=== PATIENT | female | born 1995 | race African-American/Black ===

== ENCOUNTER 2017-04-05 00:01 | Emergency (ER) | payer OTHER ==
[~2017-04-05] VITALS: Ht 170.2 cm; Wt 88.5 kg
[2017-04-05 00:02] VITALS: BP 140/83; PULSE 68; RESP 16; TEMP 98; O2SAT 100
--- NOTE | 2017-04-05 00:49 | PD ---
HPI Chief Complaint: Injury Time Seen by Provider: 00:40 Travel History International Travel<30 days: No Contact w/Intl Traveler<30days: No Traveled to known affect area: No History of Present Illness HPI 21-year-old female here with right ankle pain. She twisted her right ankle in an inversion mechanism while playing basketball tonight. She has been Having pain lateral right ankle, constant, worse with movement or ambulation. No other complaints. [facility] Past Medical History Medical History: Denies Significant Hx Diminished Hearing: No Immunizations Current: No Tetanus Vaccination: < 5 Years Influenza Vaccination: Yes ?: Not Past Surgical History Surgical History: No Previous Surgery Social History Alcohol Use: No Tobacco Use: No Substance Use: No Allergies-Medications (Allergen,Severity, Reaction): Coded Allergies: No Known Allergies (Unverified , 04/05/17) Reported Meds & Prescriptions Reported Meds & Active Scripts Active No Active Prescriptions or Reported Medications Review of Systems Except as stated in HPI: all other systems reviewed are Neg Physical Exam Narrative GENERAL: Well-nourished female in no acute distress SKIN: Warm and dry. Soft tissue swelling around the lateral malleolus of the right ankle. CARDIOVASCULAR: Regular rate and rhythm. No murmur appreciated. RESPIRATORY: No accessory muscle use. Clear to auscultation. Breath sounds equal bilaterally. MUSCULOSKELETAL: Soft tissue swelling as noted above. Tender to palpation lateral right ankle, foot. Pain with dorsi and plantar flexion. Achilles tendon intact. 2+ dorsalis pedis and posterior tibial pulse. NEUROLOGICAL: Awake and alert. No obvious cranial nerve deficits. Motor grossly within normal limits. Normal speech. PSYCHIATRIC: Appropriate mood and affect; insight and judgment normal. Data Data Last Documented VS Vital Signs Date Time Temp Pulse Resp B/P (MAP) Pulse Ox O2 Delivery O2 Flow Rate FiO2 04/05/17 00:02 98.0 68 16 140/83 (102) 100 Room Air Orders Orders Ankle, Complete ([id number]) (04/05/17 ) Foot, Complete (Crr5ihs) (04/05/17 ) Ice/Cold Pack (04/05/17 00:46) Acetaminophen (Tylenol) (04/05/17 01:00) Ct Ankle W/O Contrast (04/05/17 ) Crutches (04/05/17 02:18) Splint Or Brace Apply/Monitor (04/05/17 02:18) MDM Medical Decision Making Medical Screen Exam Complete: Yes Emergency Medical Condition: Yes Medical Record Reviewed: Yes Differential Diagnosis Lateral ankle sprain, fibular fracture, avulsion fracture, Lisfranc injury Narrative Course 21-year-old female with lateral right ankle pain after twisting her ankle in an inversion mechanism this evening. Ice pack provided. X-ray imaging ordered. Tylenol ordered. X-ray imaging revealed a questionable hairline linear fracture through the tibia and therefore CT of the ankle was ordered and this is negative for fracture. The patient appears to have a lateral ankle sprain. She is being discharged with ankle stirrup splint and crutches. Diagnosis Primary Impression: Right ankle sprain Qualified Codes: S93.401A - Sprain of unspecified ligament of right ankle, initial encounter Additional Instructions: Ice packs or times a day 20 minutes at a time. Elevate. Crutches as needed. Tylenol or Motrin as needed. Gradually return to normal activities. Follow-up with primary care physician in 2-3 weeks. Med/Other Pt SpecificInfo: Orthopedic Instructions Scripts No Active Prescriptions or Reported Meds Disposition: DISCHARGE HOME Condition: Stable Alphonso Parson Apr 05, 2017 00:49
[2017-04-05] MEDS ORDERED: ACETAMINOPHEN 325 MG TAB PO ONE (01:00)
--- NOTE | 2017-04-05 01:13 | RADRPT ---
EXAM DATE/TIME: 04/05/2017 01:04 [facility] COMPARISON: No previous studies available for comparison. INDICATIONS : Sprained ankle. MEDICAL HISTORY : None. SURGICAL HISTORY : None. ENCOUNTER: Initial ACUITY: 1 day PAIN SCORE: 3/10 LOCATION: Right Top of foot. FINDINGS: No acute fracture identified within the right foot. There is soft tissue swelling over the lateral ma lleolus. There is a questionable nondisplaced hairline fracture extending longitudinally through the tibial plafond. CONCLUSION: 1. No fracture at the right foot. Soft tissue swelling lateral malleolus. Questionable hairline fract ure nondisplaced at tibial plafond. Tavo Balderrama MD on April 05, 2017 at 1:08 Board Certified Radiologist. This report was verified electronically.
--- NOTE | 2017-04-05 01:14 | RADRPT ---
EXAM DATE/TIME: 04/05/2017 01:07 [facility] COMPARISON: No previous studies available for comparison. INDICATIONS : Sprained ankle. MEDICAL HISTORY : None. SURGICAL HISTORY : None. ENCOUNTER: Initial ACUITY: 1 day PAIN SCORE: 6/10 LOCATION: Right Ankle. FINDINGS: There is a questionable hairline nondisplaced fracture of the distal tibial plafond, better seen on t he foot x-ray. There is soft tissue swelling over the lateral malleolus. Ankle mortise intact. No oth er fractures identified. CONCLUSION: 1. Questionable hairline linear fracture through tibial plafond better seen on foot x-ray. Soft tissu e swelling over lateral malleolus. Ankle mortise intact. Tavo Balderraam MD on April 05, 2017 at 1:11 Board Certified Radiologist. This report was verified electronically.
--- NOTE | 2017-04-05 02:01 | RADRPT ---
EXAM DATE/TIME: 04/05/2017 01:39 [facility] COMPARISON: No previous studies available for comparison. INDICATIONS : Evaluate for right ankle fracture. RADIATION DOSE: 7.29 CTDIvol (mGy) MEDICAL HISTORY : None SURGICAL HISTORY : None. ENCOUNTER: Initial ACUITY: 1 day PAIN SCALE: 6/10 LOCATION: Right ankle TECHNIQUE: Volumetric scanning of the ankle was performed. Using automated exposure control and adjustment of t he mA and/or kV according to patient size, radiation dose was kept as low as reasonably achievable to obtain optimal diagnostic quality images. DICOM format image data is available electronically for review and comparison. FINDINGS: BONES: No evidence of fracture. Alignment is within normal limits. JOINTS: Ankle mortise is intact. No evidence of joint narrowing or effusion. SOFT TISSUES: Muscles, tendons and neurovascular structures are grossly unremarkable. Soft tissue swelling over lat eral malleolus. CONCLUSION: 1. Negative for fracture. Soft tissue swelling over lateral malleolus. Tvao Balderrama MD on April 05, 2017 at 1:57 Board Certified Radiologist. This report was verified electronically.
[2017-04-05] MEDS ORDERED: RESP: ALBUTEROL 2.5 MG/3 ML NEB (PRN) ONE ×2 (02:26)
== END 2017-04-05 02:37 | disposition home or self-care (01) ==
LOC: NEPD 00:01
DX: S93.401A Sprain of unspecified ligament of right ankle, initial encounter (principal); X50.1XXA Overexertion from prolonged static or awkward postures, initial encounter; Y93.67 Activity, basketball
CPT/HCPCS: 73610; 73630; 73700; 99285; E0113; J7613; L1906